=== PATIENT | female | born 1960 | race African-American/Black ===

== ENCOUNTER 2019-05-11 15:22 | Emergency (ER) | payer MEDICAID, OTHER ==
[~2019-05-11] VITALS: Ht 160 cm; Wt 65.0 kg
[2019-05-11] MEDS ORDERED: SODIUM CHLORIDE 0.9% 1,000 ML IV ONE (20:26)
[2019-05-11 21:15] VITALS: BP 122/83
[2019-05-11 21:19] LABS: BASOPHILS % 0.9 % (0.0-2.0); EOSINOPHILS % 1.7 % (0.0-5.0); HEMATOCRIT. 44.7 % (36.0-48.0); LYMPHOCYTES % 36.4 % (20.0-50.0); MEAN CORPUSCULAR HEMOGLOBIN 27.1 pg (28.0-32.0); MEAN CORPUSCULAR VOLUME 80.8 fL (81.0-99.0); MEAN PLATELET VOLUME 8.4 fl (7.4-10.4); MONOCYTES % 6.9 % (2.0-8.0); NEUTROPHILS % 54.1 % (40.0-76.0); PLATELET 412 x1000/uL (130-400); RED BLOOD CELL COUNT 5.54 mill/uL (4.2-5.4); RED CELL DISTRIBUTION WIDTH 14.5 % (11.6-14.6)
[2019-05-11 21:23] LABS: CHLORIDE 95 mEq/L (98-107)
== END 2019-05-11 22:43 | disposition home or self-care (01) ==
LOC: ER 15:22
DX: R55 Syncope and collapse (principal); R42 Dizziness and giddiness; I10 Essential (primary) hypertension; E11.9 Type 2 diabetes mellitus without complications
CPT/HCPCS: 36415; 71045; 80053; 83735; 83880; 84484; 85025; 93005; 96360; 99284; J7030; Z7610

== ENCOUNTER 2019-05-31 11:04 | Emergency (ER) | payer MEDICAID ==
[~2019-05-31] VITALS: Ht 160 cm; Wt 70.0 kg
[2019-05-31] MEDS ORDERED: IBUPROFEN 600MG TABLET PO ONE (13:30)
[2019-05-31 15:14] VITALS: BP 128/78
== END 2019-05-31 15:16 | disposition home or self-care (01) ==
LOC: ER 11:04
DX: M25.562 Pain in left knee (principal); R03.0 Elevated blood-pressure reading, without diagnosis of hypertension
CPT/HCPCS: 73560; 99283